=== PATIENT | female | born 1940 | race Caucasian/White ===

== ENCOUNTER → 2018-04-11 | Outpatient (CLI) | payer MEDICARE | END | disposition home or self-care (01) | LOC: RAD 12:22 | PROVIDERS: ATTEND Internal Medicine | DX: M19.041 Primary osteoarthritis, right hand (principal); M25.732 Osteophyte, left wrist ==

== ENCOUNTER 2018-04-26 14:36 | Emergency (ER) | payer MEDICARE ==
[~2018-04-26] VITALS: Ht 157.5 cm; Wt 58.0 kg
[2018-04-26] MEDS ORDERED: SODIUM CHLORIDE 0.9% 1,000ML IVBOLUS ONE (15:00)
[2018-04-26] MEDS ORDERED: SODIUM CHLORIDE FLUSH 10ML SYR IVF ONE (15:00)
[2018-04-26 15:12] LABS: MEAN CORPUSCULAR HEMOGLOBIN 30.6 pg (27.0-34.8); MEAN CORPUSCULAR HGB CONC 34.7 g/dL (32.4-35.8); MEAN PLATELET VOLUME 8.9 fL (7.4-10.4); PLATELET COUNT 229 x10^3/uL (130-400); RED BLOOD COUNT 4.23 x10^6/uL (3.82-5.3); RED CELL DISTRIBUTION WIDTH 13.1 % (9.6-15.2)
[2018-04-26 15:17] LABS: MICROSCOPIC AUTO
[2018-04-26 15:19] LABS: CULTURE INDICATED? YES
[2018-04-26 15:22] LABS: ALBUMIN 3.2 g/dL (3.4-5.0); ANION GAP 13 mmol/L (5-15); CALCIUM 8.6 mg/dL (8.5-10.1); CHLORIDE 100 mmol/L (98-107); CREATININE 0.83 mg/dL (0.55-1.02)
[2018-04-26 15:26] LABS: TROPONIN I < 0.015 ng/mL (0.000-0.045)
[2018-04-26 15:39] LABS: BASOPHILS # (AUTO) 0.03 x10^3/uL (0-0.1); BASOPHILS % (AUTO) 0 % (0-1); EOSINOPHILS # (AUTO) 0.01 x10^3/uL (0-0.4); EOSINOPHILS % (AUTO) 0 % (1-7); LYMPHOCYTES # (AUTO) 0.88 x10^3/uL (1-3.4); LYMPHOCYTES % (AUTO) 8 % (22-44); MD SCAN; MONOCYTES # (AUTO) 1.62 x10^3/uL (0.2-0.8); MONOCYTES % (AUTO) 15 % (2-9); NEUTROPHILS # (AUTO) 8.14 x10^3/uL (1.8-6.8); NEUTROPHILS % (AUTO) 76 % (42-75)
[2018-04-26 15:48] VITALS: BP 146/81
== END 2018-04-26 16:51 | disposition home or self-care (01) ==
LOC: ED 16:29
DX: E86.0 Dehydration (principal); N30.00 Acute cystitis without hematuria; I10 Essential (primary) hypertension
CPT/HCPCS: 36415; 71045; 80048; 81001; 82040; 84484; 85025; 87077; 87086; 87186; 93005; 96360; 96361; 99285; J7030